=== PATIENT | female | born 1950 | race Caucasian/White ===

== ENCOUNTER 2023-05-27 09:20 | Emergency (ER) | payer MEDICARE ==
[2023-05-27] MEDS: Sodium Chloride 0.9% 1,000 ML IV ONE (10:21)
[2023-05-27 10:28] LABS: ALBUMIN 3.01 g/dL (3.40-5.00); ANION GAP 16.5 mmol/L (5-15); BILIRUBIN TOTAL 0.6 mg/dL (0.2-1.0); CALCIUM 8.2 mg/dL (8.7-10.3); CARBON DIOXIDE,CO2 23.3 mmol/L (21.0-32.0); CREATININE 0.53 mg/dL (0.51-1.17); EST CRCL DRUG DOSING (CG) 87.18 mL/min; POTASSIUM,K 2.8 mmol/L (3.5-5.1); PROTEIN TOTAL,TP 5.7 g/dL (6.4-8.2)
[2023-05-27 10:45] LABS: INFLUENZA A NAA NEGATIVE (NEGATIVE); INFLUENZA B NAA NEGATIVE (NEGATIVE)
[2023-05-27 10:46] LABS: CORONAVIRUS COVID-19 NAA NEGATIVE (NEGATIVE)
[2023-05-27] MEDS: Acetaminophen 500 MG Tab PO ONE (10:55)
[2023-05-27 11:02] LABS: BASOPHILS ABSOLUTE AUTO 0.06 10^3/uL (0.00-0.10); BASOPHILS PERCENT AUTO 1.1 % (0.0-1.0); EOSINOPHILS ABSOLUTE AUTO 0.04 10^3/uL (0.10-0.30); EOSINOPHILS PERCENT AUTO 0.7 % (1.0-3.0); HEMOGLOBIN 9.7 g/dL (12.0-16.0); IMMATURE GRAN ABSOLUTE AUTO 0.01 10^3/uL (0.00-0.50); IMMATURE GRAN PERCENT AUTO 0.2 % (0.0-5.0); LYMPHOCYTES ABSOLUTE AUTO 1.27 10^3/uL (1.00-4.00); LYMPHOCYTES PERCENT AUTO 23.4 % (20.0-40.0); MEAN CORPUSCULAR HEMOGLOBIN 32.1 pg (27.0-31.0); MEAN CORPUSCULAR HGB CONC 33.4 g/dL (32.0-36.0); MONOCYTES ABSOLUTE AUTO 0.78 10^3/uL (0.10-0.80); MONOCYTES PERCENT AUTO 14.4 % (2.0-8.0); NEUTROPHILS ABSOLUTE AUTO 3.26 10^3/uL (2.50-7.00); NEUTROPHILS PERCENT AUTO 60.2 % (50.0-70.0); PLATELET COUNT,PLT 230 10^3/uL (150-400); RED BLOOD CELL COUNT 3.02 10^6/uL (3.80-5.50); WHITE BLOOD CELL COUNT,WBC 5.42 10^3/uL (5.00-10.00)
[2023-05-27] MEDS ORDERED: Naloxone 0.4 MG/ML SDV IVPUSH PRN (11:12)
[2023-05-27] MEDS: Ondansetron 4 MG/2 ML SDV IVPUSH ONE (11:17)
[2023-05-27] MEDS: HYDROmorphone 1 MG/ML Syringe IVPUSH ONE (11:17)
[2023-05-27] MEDS: Potassium Chloride 20 MEQ Tab.ER PO ONE (11:46)
== END 2023-05-27 12:45 | disposition home or self-care (01) ==
LOC: KA.ED 09:20
DX: E87.6 Hypokalemia (principal); R52 Pain, unspecified; R79.1 Abnormal coagulation profile; D64.9 Anemia, unspecified; I10 Essential (primary) hypertension; F17.210 Nicotine dependence, cigarettes, uncomplicated; Z79.82 Long term (current) use of aspirin; Z79.899 Other long term (current) drug therapy; Z88.5 Allergy status to narcotic agent
CPT/HCPCS: 0240U; 36415; 80053; 84484; 85025; 85379; 96361; 96374; 96375; 99283; 99283-25; A9270-GY; J1170; J1642; J2405; J7030

== ENCOUNTER 2023-06-23 19:28 | Emergency (ER) | payer MEDICARE ==
[2023-06-23] MEDS: Acetaminophen/HYDROcodone 325-5 MG Tab PO ONE ×2 (20:08→20:11)
== END 2023-06-23 21:23 | disposition home or self-care (01) ==
LOC: KA.ED 19:28
DX: G89.29 Other chronic pain (principal); T45.1X5A Adverse effect of antineoplastic and immunosuppressive drugs, initial encounter; I10 Essential (primary) hypertension; E78.00 Pure hypercholesterolemia, unspecified; Z88.8 Allergy status to other drugs, medicaments and biological substances; Z79.82 Long term (current) use of aspirin; Z79.899 Other long term (current) drug therapy
CPT/HCPCS: 99283; A9270